=== PATIENT | female | born 1990 | race Caucasian/White ===

== ENCOUNTER 2016-12-04 21:19 | Emergency (ER) | payer SELFPAY ==
[2016-12-04 21:24] VITALS: BP 127/70
--- NOTE | 2016-12-04 22:15 | ER Document Report ---
ED Oral Problem - General Mode of Arrival: Ambulatory Information source: Patient TRAVEL OUTSIDE OF THE [place] IN LAST 30 DAYS: No - General Chief Complaint: Toothache Stated Complaint: TOOTH PAIN Notes: Patient is a 26-year-old female who frequently is seen in this emergency department with painful complains including several visits for dental pain who presents to the emergency department today with complaints of dental pain. Patient states that this she has been having this dental pain for approximately 3 days. Patient states she has an appointment next month at the [facility] to have this tooth removed. Patient complains of a headache with associated nausea. (KAYLA ANDERSON) - Related Data Allergies/Adverse Reactions: No Known Allergies Allergy (Verified 12/15/14 20:26) Past Medical History - General Information source: Patient - Social History Smoking Status: Current Every Day Smoker Cigarette use (# per day): Yes Frequency of alcohol use: None Drug Abuse: None Lives with: Family Family History: Arthritis, Hypertension Patient has suicidal ideation: No Patient has homicidal ideation: No Neurological Medical History: Reports: Hx Migraine Psychiatric Medical History: Reports: Hx Anxiety, Hx Depression - anxiety, panic attacks Surgical Hx: Negative - Immunizations Immunizations up to date: Yes Hx Diphtheria, Pertussis, Tetanus Vaccination: Yes Review of Systems - Review of Systems Constitutional: No symptoms reported EENT: See HPI, Mouth pain Cardiovascular: No symptoms reported Respiratory: No symptoms reported Gastrointestinal: See HPI, Nausea Genitourinary: No symptoms reported Female Genitourinary: No symptoms reported Musculoskeletal: No symptoms reported Skin: No symptoms reported Hematologic/Lymphatic: No symptoms reported Neurological/Psychological: See HPI, Headaches -: Yes All other systems reviewed and negative Physical Exam - Vital signs Vitals: Temp Pulse Resp BP Pulse Ox 98.5 F 82 18 127/70 H 98 12/04/16 21:20 12/04/16 21:20 12/04/16 21:20 12/04/16 21:20 12/04/16 21:20 - Notes Notes: Physical Exam: General: Alert, appears well. HEENT: Normocephalic. Atraumatic. PERRLA. Extraocular movements intact. Oropharynx clear. Left lower tooth with dental decay, no secondary infection, no jaw or facial swelling, no abscess formation. No trismus or stridor. Patient handling secretions appropriately. Airway is patent. Neck: Supple. Respiratory: No respiratory distress. Abdominal: Normal Inspection. No distension. Extremities: Moves all four extremities. Neurological: Cranial nerves II-XII grossly intact bilaterally. Normal cognition. AAOx4. Normal speech. Psychological: Normal affect. Normal Mood. Skin: Warm. Dry. Normal color. (KAYLA ANDERSON) Course - Re-evaluation Re-evalutation: 12/05/16 00:48 Patient presents emerged from with a chief complaint of toothache said it started on Wednesday and she called her dental physician they can get her in in a month and a half. She says that they told her to come to the emergency department until she can get in. She said this is the dental clinic that her goes to. This particular tooth is rotten down to the root and we have seen her numerous times for this particular tooth in the past. She does not have a primary care physician. The tooth in question is the left lower tooth it is not secondarily infected there is no jaw facial swelling she reports she cannot eat or drink anything there is nothing on my examination and states she cannot drink or eat with this there is no associated swelling or abscess. Trachea is midline neck is supple no trismus stridor or drooling. She also says she feels sick to her stomach from "the infection it is in her tooth. Again I see no signs of infection she is awake and alert requesting narcotics on examination I do not feel that is appropriate I am going to give her penicillin and Marisol gave her a list of dental physician so she can call and get a more prompt follow-up in addition to follow-up with the clinic for outgoing management of medical related problems and discussed reasons for ED return sooner (MIKAEL NICHOLE) - Vital Signs Vital signs: Temp Pulse Resp BP Pulse Ox 98.5 F 82 18 127/70 H 98 12/04/16 21:20 12/04/16 21:20 12/04/16 21:20 12/04/16 21:20 12/04/16 21:20 Discharge - Discharge Clinical Impression: Odontalgia Condition: Stable Disposition: HOME, SELF-CARE Instructions: [facility], Penicillin V K ([facility]), Toothache ([facility]) Additional Instructions: Toothache Your pain is due to dental decay. The tooth must be repaired in order for you to feel better. You will, therefore, be referred to a dentist. Severe swelling or drainage around a tooth usually means a deep dental abscess. This also requires evaluation and treatment by the dentist, but antibiotics may be prescribed while awaiting dental treatment. You should be rechecked immediately if you develop major swelling of the face, increasing pain, a lump in the jaw or gums, headache, or fever. Prescriptions: Ondansetron [Zofran Odt 4 mg Tablet] 1 - 2 tab PO Q4H PRN #15 tab.rapdis PRN Reason: For Nausea/Vomiting Penicillin V Potassium [Penicillin Vk 250 mg Tablet] 250 mg PO Q6 #40 tablet Referrals: [facility] [Provider Group] (In 3-5 days was also given you a list of dental physicians in the area that you must see to take care of your dental problem.) Marshall Attestation: 12/05/16 00:47 I personally performed the services described in the documentation reviewed the documentation recorded by my scribe in my presence and it accurately and completely records my words and actions (MIKAEL NICHOLE) Marshall Documentation - Scribe Written by Marshall:: Marshall Jacobo, 12/05/2016 0318 acting as scribe for :: Neville
[2016-12-05] MEDS ORDERED: PENICILLIN V POTASSIUM 250 MG TABLET PO ONE (00:49)
[2016-12-05] MEDS ORDERED: ONDANSETRON ODT 4 MG TAB (6 TAB/DSPK) PO PRN (00:50)
== END 2016-12-05 01:30 | disposition home or self-care (01) ==
LOC: ER 21:19
DX: K08.89 Other specified disorders of teeth and supporting structures (principal); F17.210 Nicotine dependence, cigarettes, uncomplicated
CPT/HCPCS: 99282

== ENCOUNTER 2017-03-24 19:16 | Emergency (ER) | payer SELFPAY ==
[2017-03-24] MEDS ORDERED: PENICILLIN V POTASSIUM 500 MG TABLET PO ONE (20:17)
[2017-03-24] MEDS ORDERED: HYDROCODONE/ACETAMINOPHEN 5-325 MG 6 TAB/DSPK PO PRN (20:17)
--- NOTE | 2017-03-24 20:20 | ER Document Report ---
HPI - HPI Patient complains to provider of: dental infection Onset: Other - 3 days Onset/Duration: Persistent Quality of pain: Sharp Pain Level: 4 Context: She complains of dental pain with infection for the past 3 days. Patient states that 2 days ago she had facial swelling and then a small blister on her gingiva opened and she has had purulent drainage since then. Patient states facial swelling has improved. Patient denies any fever. Associated Symptoms: Other - dental pain Exacerbated by: Denies Relieved by: Denies Similar symptoms previously: Yes Recently seen / treated by doctor: No - ROS ROS below otherwise negative: Yes Systems Reviewed and Negative: Yes All other systems reviewed and negative - GASTROINTESTINAL Gastrointestinal: DENIES: Nausea - REPRODUCTIVE Reproductive: DENIES: : - DERM Skin Color: Normal Skin Problems: None Past Medical History - General Information source: Patient - Social History Smoking Status: Current Every Day Smoker Smoking Education Provided: Yes Frequency of alcohol use: None Drug Abuse: None Occupation: None Lives with: Family Family History: Arthritis, Hypertension Neurological Medical History: Reports: Hx Migraine Renal/ Medical History: Denies: Hx Peritoneal Dialysis Psychiatric Medical History: Reports: Hx Anxiety, Hx Depression - anxiety, panic attacks Surgical Hx: Negative - Immunizations Immunizations up to date: Yes Hx Diphtheria, Pertussis, Tetanus Vaccination: Yes Vertical Provider Document - CONSTITUTIONAL Agree With Documented VS: Yes Exam Limitations: No Limitations General Appearance: WD/WN, No Apparent Distress - INFECTION CONTROL TRAVEL OUTSIDE OF THE [place] IN LAST 30 DAYS: No - HEENT HEENT: Atraumatic, Normocephalic Mouth Diagram: 1 - Dental caries, fracture, tenderness. Patient with gingiva with draining ulceration, no drainable abscess at this time - NECK Neck: Normal Inspection, Supple. negative: Lymphadenopathy-Left, Lymphadenopathy-Right - RESPIRATORY Respiratory: Breath Sounds Normal, No Respiratory Distress O2 Sat by Pulse Oximetry: 100 - CARDIOVASCULAR Cardiovascular: Regular Rate, Regular Rhythm, No Murmur - BACK Back: Normal Inspection - MUSCULOSKELETAL/EXTREMETIES Musculoskeletal/Extremeties: JAKE ROTH - NEURO Level of Consciousness: Awake, Alert, Appropriate Motor/Sensory: No Motor Deficit - DERM Integumentary: Warm, Dry, No Rash Course - Vital Signs Vital signs: Temp Pulse Resp BP Pulse Ox 98.6 F 81 18 134/89 H 100 03/24/17 19:17 03/24/17 19:17 03/24/17 19:17 03/24/17 19:17 03/24/17 19:17 Discharge - Discharge Clinical Impression: Infected dental caries Condition: Stable Disposition: HOME, SELF-CARE Instructions: Dental Infection or Abscess ([facility]), Oral Narcotic Medication ([facility]) , Penicillin V K ([facility]) Additional Instructions: Return immediately for any new or worsening symptoms Followup with your dental care provider, call tomorrow to make a followup appointment Prescriptions: Naproxen [Naprosyn 250 Nmg Tablet] 1 tab PO BID #14 tablet Penicillin V Potassium [Penicillin Vk 500 mg Tablet] 500 mg PO BID #20 tablet Forms: Smoking Cessation Education Referrals: [facility] [Provider Group] - Follow up tomorrow
[2017-03-24 20:33] VITALS: BP 132/86
== END 2017-03-24 20:34 | disposition home or self-care (01) ==
LOC: ER 19:16
DX: K04.7 Periapical abscess without sinus (principal); K02.9 Dental caries, unspecified; K08.89 Other specified disorders of teeth and supporting structures; F17.200 Nicotine dependence, unspecified, uncomplicated; Z71.6 Tobacco abuse counseling
CPT/HCPCS: 99282

== ENCOUNTER 2018-05-10 06:53 | Emergency (ER) | payer SELFPAY ==
[2018-05-10] MEDS ORDERED: KETOROLAC TROMETHAMINE INJ/PF 30 MG/1 ML SDV IV ONE (07:19)
[2018-05-10] MEDS ORDERED: ONDANSETRON HCL INJ/PF 4 MG/2 ML SDV IV ONE (07:19)
[2018-05-10] MEDS ORDERED: NORMAL SALINE 1000 ML 1,000 ML IV ONE (07:19)
[2018-05-10] MEDS ORDERED: MORPHINE SULFATE 10 MG/ML INJ IV ONE (07:19)
--- NOTE | 2018-05-10 07:24 | ER Document Report ---
ED GI/ - General Chief Complaint: Abdominal Pain Stated Complaint: LEFT SIDE PAIN Time Seen by Provider: 05/10/18 06:55 Mode of Arrival: Ambulatory Information source: Patient Notes: Patient is an otherwise healthy 27-year-old female who presents to the emergency department with sudden onset left upper quadrant pain. She states this started at 2 AM, she thought it was perhaps a gas or that she needed to have a bowel movement. She reports that the pain has increased since then she now has nausea and vomiting. Patient reports history of kidney stones, states this does not feel similar and she denies any dysuria or urinary symptoms. Patient denies any fever. Reports before she went to bed last night she was feeling fine. Patient has no significant past medical history and no surgical history. TRAVEL OUTSIDE OF THE [place] IN LAST 30 DAYS: No - Related Data Allergies/Adverse Reactions: No Known Allergies Allergy (Verified 05/10/18 07:27) Past Medical History - General Information source: Patient - Social History Smoking Status: Never Smoker Frequency of alcohol use: None Drug Abuse: None Family History: Arthritis, Hypertension Neurological Medical History: Reports: Hx Migraine Renal/ Medical History: Denies: Hx Peritoneal Dialysis Psychiatric Medical History: Reports: Hx Anxiety, Hx Depression - anxiety, panic attacks Surgical Hx: Negative - Immunizations Immunizations up to date: Yes Hx Diphtheria, Pertussis, Tetanus Vaccination: Yes Review of Systems - Review of Systems Constitutional: No symptoms reported EENT: No symptoms reported Cardiovascular: No symptoms reported Respiratory: No symptoms reported Gastrointestinal: Abdominal pain - LUQ, Nausea, Vomiting Genitourinary: Flank pain Female Genitourinary: No symptoms reported Musculoskeletal: No symptoms reported Skin: No symptoms reported Hematologic/Lymphatic: No symptoms reported Neurological/Psychological: No symptoms reported Physical Exam - Vital signs Vitals: Pulse Resp BP Pulse Ox 69 18 120/77 99 05/10/18 06:53 05/10/18 06:53 05/10/18 06:53 05/10/18 06:53 - Notes Notes: PHYSICAL EXAMINATION: GENERAL: Well-appearing, well-nourished and in moderate distress. HEAD: Atraumatic, normocephalic. EYES: Pupils equal round and reactive to light, extraocular movements intact, conjunctiva are normal. ENT: Nares patent, oropharynx clear without exudates. Moist mucous membranes. NECK: Normal range of motion, supple without lymphadenopathy LUNGS: Breath sounds clear to auscultation bilaterally and equal. No wheezes rales or rhonchi. HEART: Regular rate and rhythm without murmurs ABDOMEN: Soft, nondistended abdomen. Tenderness to palpation to left upper quadrant. No guarding, no rebound. No masses appreciated. Female : Left-sided CVA tenderness present. Musculoskeletal: Normal range of motion, no pitting or edema. No cyanosis. NEUROLOGICAL: Cranial nerves grossly intact. Normal speech. Normal sensory, motor exams PSYCH: Normal mood, normal affect. SKIN: Warm, Dry, normal turgor, no rashes or lesions noted. Course - Re-evaluation Re-evalutation: Patient's physical examination is most consistent with left renal stone. CBC and CMP are unremarkable. Urinalysis shows moderate hematuria with calcium oxalate present otherwise appears uninfected. HCG is negative. We will send patient for CT renal stone protocol. Patient reports improvement of her pain after administration of multiple rounds of IV medications. IV fluids are infusing. CT reveals 4 mm nonobstructive stone at the left UPJ with mild hydronephrosis but no hydroureter. Patient reports she is feeling much improved. Patient stable for discharge home at this time. Patient given adequate pain control as well as nausea medications. Strict ED return precautions were given to patient to include development of fever. - Vital Signs Vital signs: Temp Pulse Resp BP Pulse Ox 97.8 F 69 18 111/61 95 05/10/18 06:58 05/10/18 06:53 05/10/18 06:53 05/10/18 09:00 05/10/18 11:00 - Laboratory Result Diagrams: 05/10/18 07:16 05/10/18 07:16 Laboratory results interpreted by me: 05/10/18 05/10/18 07:16 08:05 Chloride 110 H Carbon Dioxide 21 L Urine Protein 100 H Urine Blood MODERATE H Urine Bilirubin SMALL H Urine Urobilinogen 4.0 H Discharge - Discharge Clinical Impression: Kidney stone on left side Condition: Stable Disposition: HOME, SELF-CARE Additional Instructions: Kidney Stone You are passing or have passed a kidney stone. These stones are usually due to increased calcium or uric acid concentrations in your urine. Stones within the kidney itself are not painful. The pain occurs as the stone leaves the kidney to pass down the long tube, called the ureter, leading to the bladder. If the stone is small, it will usually pass by itself. Most patients can pass the stone at home. You will usually receive medications for pain, nausea or vomiting, and sometimes a medication to assist in passing the kidney stone. However, if the pain is very severe or if vomiting prevents you from taking oral pain medications, you may need to return for further treatment. Drink three or four quarts of fluids per day. You will be given pain medication (if needed) and urine strainers. Strain all your urine to see if the stone passes. If your doctor has asked you to bring the stone in for analysis, return with the stone once it has passed. Return if pain or vomiting become severe, if you develop a high fever, if you are unable to pass your urine, or if other unusual symptoms occur. Your symptoms should improve over the course of the next one week. If you continue to have pain for greater than one week or your pain is not controlled with the pain medications that you have been sent home with you need to return to the emergency department. Please also return if you develop fever, persistent vomiting, or any other symptoms that are concerning to you. You should take ibuprofen 600 mg every 6 hours and use the Percocet as prescribed only for pain not controlled by ibuprofen. You are also been sent home with a m edication called Flomax to help pass the stone. You've been given Zofran to assist with nausea. Prescriptions: Ibuprofen [Motrin 600 mg Tablet] 600 mg PO Q6H PRN #40 tablet PRN Reason: For Pain Ondansetron [Zofran Odt 4 mg Tablet] 1 - 2 tab PO Q4H PRN #15 tab.rapdis PRN Reason: For Nausea/Vomiting Oxycodone HCl/Acetaminophen [Percocet 5-325 mg Tablet] 1 - 2 tab PO Q4H PRN #15 tablet PRN Reason: Tamsulosin HCl [Flomax 0.4 mg Cap.sr] 0.4 mg PO DAILY #7 cap.sr.24h Referrals: [facility] [Provider Group] - Follow up as needed
[2018-05-10 07:31] LABS: ABSOLUTE EOSINOPHILS # (AUTO) 0.1 10^3/uL (0.0-0.6); ABSOLUTE LYMPHOCYTES (AUTO) 1.9 10^3/uL (0.5-4.7); ABSOLUTE MONOCYTES (AUTO) 0.7 10^3/uL (0.1-1.4); ABSOLUTE NEUT (AUTO) 7.3 10^3/uL (1.7-8.2); BASOPHILS % (AUTO) 0.3 % (0-2); EOSINOPHILS % (AUTO) 1.3 % (0-6); HEMATOCRIT 39.6 % (36.0-47.0); HEMOGLOBIN 13.9 g/dL (12.0-15.5); LYMPHOCYTES % (AUTO) 18.9 % (13-45); MEAN CORPUSCULAR HEMOGLOBIN 29.9 pg (27.0-33.4); MEAN CORPUSCULAR HGB CONC 35.1 g/dL (32.0-36.0); MEAN CORPUSCULAR VOLUME 85 fl (80-97); MONOCYTES % (AUTO) 7.1 % (3-13); PLATELET COUNT 234 10^3/uL (150-450); RED BLOOD COUNT 4.66 10^6/uL (3.72-5.28); RED CELL DISTRIBUTION WIDTH 12.8 % (11.5-14.0); SEGMENTED NEUTROPHILS % (AUTO) 72.4 % (42-78); TOTAL CELLS COUNTED % (AUTO) 100 %
[2018-05-10 07:49] LABS: ALANINE AMINOTRANSFERASE 34 U/L (9-52); ALBUMIN 4.7 g/dL (3.5-5.0); ALKALINE PHOSPHATASE 62 U/L (38-126); ANION GAP 9 (5-19); ASPARTATE AMINO TRANSFERASE 20 U/L (14-36); BILIRUBIN,DIRECT 0.1 mg/dL (0.0-0.4); BILIRUBIN,TOTAL 0.6 mg/dL (0.2-1.3); BLOOD UREA NITROGEN 15 mg/dL (7-20); CALCIUM 10.1 mg/dL (8.4-10.2); CARBON DIOXIDE 21 mmol/L (22-30); CHLORIDE 110 mmol/L (98-107); GLUCOSE 106 mg/dL (75-110); LIPASE 66.9 U/L (23-300); POTASSIUM 4.1 mmol/L (3.6-5.0); TOTAL PROTEIN 7.3 g/dL (6.3-8.2)
[2018-05-10] MEDS ORDERED: HYDROMORPHONE HCL INJ/PF 2 MG/ML AMPULE IV ONE ×2 (08:16→10:25)
[2018-05-10 08:44] LABS: APPEARANCE,URINE CLOUDY; BILIRUBIN,URINE SMALL (NEGATIVE); CALCIUM OXALATE CRYSTALS,URINE TOO NUMEROUS TO CNT /HPF; COLOR,URINE DARK YELLOW; GLUCOSE, URINE NEGATIVE (NEGATIVE); KETONES,URINE NEGATIVE (NEGATIVE); LEUKOCYTE ESTERASE,URINE NEGATIVE (NEGATIVE); NITRITE,URINE NEGATIVE (NEGATIVE); PROTEIN,URINE 100 mg/dL (NEGATIVE); URINE SPECIFIC GRAVITY 1.032
--- NOTE | 2018-05-10 09:55 | RADIOLOGY REPORT (SQ) ---
EXAM DESCRIPTION: CT LTD RENAL STONE PROTOCOL ON COMPLETED DATE/TIME: 05/10/2018 9:40 am REASON FOR STUDY: LEFT FLANK PAIN COMPARISON: None. TECHNIQUE: CT scan of the abdomen and pelvis performed without intravenous or oral contrast. Images reviewed with lung, soft tissue, and bone windows. Reconstructed coronal and sagittal MPR images revi ewed. All images stored on PACS. All CT scanners at this facility use dose modulation, iterative reconstruction, and/or weight based d osing when appropriate to reduce radiation dose to as low as reasonably achievable (ALARA). [facility]: Dose Right [facility]: CareDose [facility]: Dose Right [facility]: Teradose 4D [facility]: [employer] RADIATION DOSE: CT Rad equipment meets quality standard of care and radiation dose reduction techniq ues were employed. CTDIvol: 5.1 mGy. DLP: 262 mGy-cm.mGy. LIMITATIONS: None. FINDINGS: LOWER CHEST: No significant findings. No nodules or infiltrates. NON-CONTRASTED LIVER, SPLEEN, ADRENALS: Evaluation limited by lack of IV contrast. No identified sign ificant masses. PANCREAS: No masses. No peripancreatic inflammatory changes. GALLBLADDER: No identified stones by CT criteria. No inflammatory changes to suggest cholecystitis. RIGHT KIDNEY AND URETER: No suspicious masses. Assessment limited by lack of IV contrast. 6 mm narinder l calculus. No hydronephrosis or hydroureter. LEFT KIDNEY AND URETER: No suspicious masses. Assessment limited by lack of IV contrast. Several re nal calculi measuring up to 7 mm lower pole. 4 mm stone UPJ. Mild hydronephrosis. AORTA AND RETROPERITONEUM: No aneurysm. No retroperitoneal masses or adenopathy. BOWEL AND PERITONEAL CAVITY: No obvious masses or inflammatory changes. No free fluid. APPENDIX: Normal. PELVIS, BLADDER, AND ABDOMINAL WALL:No abnormal masses. No free fluid. Bladder normal. BONES: No significant findings. OTHER: No other significant finding. IMPRESSION: 4 mm stone left UPJ. Mild hydronephrosis. COMMENT: Quality ID # [id number]: Final reports with documentation of one or more dose reduction techniques (e.g., Automated exposure control, adjustment of the mA and/or kV according to patient size, use of iterative reconstruction technique) TECHNICAL DOCUMENTATION: JOB ID: [id number] [employer]- All Rights Reserved Reading location - IP/workstation name: [facility]
[2018-05-10 11:32] VITALS: BP 111/61
== END 2018-05-10 11:43 | disposition home or self-care (01) ==
LOC: ER 06:53
DX: N13.2 Hydronephrosis with renal and ureteral calculous obstruction (principal); R31.9 Hematuria, unspecified; R10.12 Left upper quadrant pain; R11.2 Nausea with vomiting, unspecified
CPT/HCPCS: 96376; 99284; 96361; 96374; 96375; 36415; 83690; 85025; 81025; 80053; 81001; 76380; J1885; J2270; J1170; J2405; J7030

== ENCOUNTER 2018-05-11 21:48 | Emergency (ER) | payer SELFPAY ==
[2018-05-11] MEDS ORDERED: ONDANSETRON 4 MG TAB.RAPDIS PO ONE (22:59)
[2018-05-11] MEDS ORDERED: MORPHINE SULFATE 10 MG/ML INJ IV ONE (23:00)
--- NOTE | 2018-05-11 23:02 | ER Document Report ---
ED Medical Screen (RME) - General Chief Complaint: Flank Pain Stated Complaint: FLANK PAIN Time Seen by Provider: 05/11/18 22:59 Notes: Patient is a 27-year-old female presents to the emergency department complaining of continued left-sided flank pain and vomiting. Patient states she was at this facility yesterday diagnosed with kidney stones and given prescription for nausea medication and pain medication. Patient states she was unable to fill the pain medication until this afternoon. Patient states she did start vomiting this afternoon and now cannot keep the pain medications down because of the continued vomiting. This is why patient represents to the emergency room. Past medical history: Kidney stones Medications: Currently none Allergies: None GENERAL: Alert, interacts well. Actively vomiting, diaphoretic ABDOMEN: Soft, non-tender. Non-distended. Bowel sounds present in all 4 quadrants. Generalized left flank pain noted no left lower quadrant pain or pelvic pain noted. I have greeted and performed a rapid initial assessment of this patient. A comprehensive ED assessment and evaluation of the patient, analysis of test results and completion of the medical decision making process will be conducted by additional ED providers. TRAVEL OUTSIDE OF THE [place] IN LAST 30 DAYS: No - Related Data Allergies/Adverse Reactions: No Known Allergies Allergy (Verified 05/10/18 07:27) Past Medical History Neurological Medical History: Reports: Hx Migraine Renal/ Medical History: Denies: Hx Peritoneal Dialysis Psychiatric Medical History: Reports: Hx Anxiety, Hx Depression - anxiety, panic attacks - Immunizations Immunizations up to date: Yes Hx Diphtheria, Pertussis, Tetanus Vaccination: Yes Physical Exam - Vital signs Vitals: Temp Pulse Resp BP Pulse Ox 98.7 F 74 18 117/58 L 100 05/11/18 22:21 05/11/18 22:21 05/11/18 22:21 05/11/18 22:21 05/11/18 22:21 Course - Vital Signs Vital signs: Temp Pulse Resp BP Pulse Ox 98.7 F 74 18 117/58 L 100 05/11/18 22:21 05/11/18 22:21 05/11/18 22:21 05/11/18 22:21 05/11/18 22:21
[2018-05-11] MEDS ORDERED: NORMAL SALINE 1000 ML 1,000 ML IV ONE (23:03)
[2018-05-12 00:15] LABS: ABSOLUTE EOSINOPHILS # (AUTO) 0.1 10^3/uL (0.0-0.6); ABSOLUTE LYMPHOCYTES (AUTO) 1.2 10^3/uL (0.5-4.7); ABSOLUTE MONOCYTES (AUTO) 0.5 10^3/uL (0.1-1.4); ABSOLUTE NEUT (AUTO) 6.9 10^3/uL (1.7-8.2); BASOPHILS % (AUTO) 0.3 % (0-2); EOSINOPHILS % (AUTO) 0.7 % (0-6); HEMATOCRIT 39.8 % (36.0-47.0); HEMOGLOBIN 13.6 g/dL (12.0-15.5); LYMPHOCYTES % (AUTO) 13.6 % (13-45); MEAN CORPUSCULAR HEMOGLOBIN 29.1 pg (27.0-33.4); MEAN CORPUSCULAR HGB CONC 34.2 g/dL (32.0-36.0); MEAN CORPUSCULAR VOLUME 85 fl (80-97); PLATELET COUNT 216 10^3/uL (150-450); RED BLOOD COUNT 4.68 10^6/uL (3.72-5.28); SEGMENTED NEUTROPHILS % (AUTO) 79.4 % (42-78); TOTAL CELLS COUNTED % (AUTO) 100 %; WHITE BLOOD COUNT 8.7 10^3/uL (4.0-10.5)
[2018-05-12 00:22] LABS: ALANINE AMINOTRANSFERASE 28 U/L (9-52); ALKALINE PHOSPHATASE 68 U/L (38-126); ANION GAP 13 (5-19); ASPARTATE AMINO TRANSFERASE 26 U/L (14-36); BILIRUBIN,DIRECT 0.3 mg/dL (0.0-0.4); BILIRUBIN,TOTAL 0.8 mg/dL (0.2-1.3); BLOOD UREA NITROGEN 18 mg/dL (7-20); CARBON DIOXIDE 19 mmol/L (22-30); CHLORIDE 105 mmol/L (98-107); GLUCOSE 74 mg/dL (75-110); SODIUM 137.2 mmol/L (137-145); TOTAL PROTEIN 7.6 g/dL (6.3-8.2)
[2018-05-12] MEDS ORDERED: PROMETHAZINE HCL INJ 25 MG/1 ML VIAL IV ONE (00:22)
[2018-05-12] MEDS ORDERED: HYDROMORPHONE HCL INJ/PF 2 MG/ML AMPULE IV ONE (00:22)
[2018-05-12] MEDS ORDERED: METOCLOPRAMIDE HCL INJ/PF 10 MG/2 ML SDV IV ONE (01:14)
[2018-05-12] MEDS ORDERED: NORMAL SALINE 1000 ML 1,000 ML IV ONE (01:17)
[2018-05-12 01:25] LABS: APPEARANCE,URINE SLIGHTLY-CLOUDY; BILIRUBIN,URINE NEGATIVE (NEGATIVE); COLOR,URINE YELLOW; GLUCOSE, URINE NEGATIVE (NEGATIVE); KETONES,URINE 80 mg/dL (NEGATIVE); LEUKOCYTE ESTERASE,URINE SMALL (NEGATIVE); NITRITE,URINE NEGATIVE (NEGATIVE); PROTEIN,URINE 30 mg/dL (NEGATIVE)
--- NOTE | 2018-05-12 02:12 | ER Document Report ---
ED General - General Chief Complaint: Flank Pain Stated Complaint: FLANK PAIN Time Seen by Provider: 05/11/18 22:59 Notes: Patient is a 27-year-old female presents to the emergency department complaining of continued left-sided flank pain and vomiting. Patient states she was at this facility yesterday diagnosed with kidney stones and given prescription for nausea medication and pain medication. Patient states she was unable to fill the pain medication until this afternoon. Patient states she did start vomiting this afternoon and now cannot keep the pain medications down because of the continued vomiting. This is why patient represents to the emergency room. Past medical history: Kidney stones Medications: Currently none Allergies: None TRAVEL OUTSIDE OF THE [place] IN LAST 30 DAYS: No - Related Data Allergies/Adverse Reactions: No Known Allergies Allergy (Verified 05/10/18 07:27) Past Medical History - General Information source: Patient - Social History Smoking Status: Unknown if Ever Smoked Family History: Arthritis, Hypertension Patient has suicidal ideation: No Patient has homicidal ideation: No Neurological Medical History: Reports: Hx Migraine Renal/ Medical History: Reports: Hx Kidney Stones. Denies: Hx Peritoneal Dialysis Psychiatric Medical History: Reports: Hx Anxiety, Hx Depression - anxiety, panic attacks - Immunizations Immunizations up to date: Yes Hx Diphtheria, Pertussis, Tetanus Vaccination: Yes Review of Systems - Review of Systems Constitutional: No symptoms reported. denies: Fever EENT: No symptoms reported Cardiovascular: No symptoms reported Respiratory: No symptoms reported Gastrointestinal: See HPI Genitourinary: See HPI Female Genitourinary: No symptoms reported Musculoskeletal: No symptoms reported Skin: No symptoms reported Hematologic/Lymphatic: No symptoms reported Neurological/Psychological: No symptoms reported Physical Exam - Vital signs Vitals: Temp Pulse Resp BP Pulse Ox 98.7 F 74 18 117/58 L 100 05/11/18 22:21 05/11/18 22:21 05/11/18 22:21 05/11/18 22:21 05/11/18 22:21 - Notes Notes: GENERAL: Alert, interacts well. No acute distress. HEAD: Normocephalic, atraumatic. EYES: Pupils equal, round, and reactive to light. Extraocular movements intact. ENT: Oral mucosa moist, tongue midline. NECK: Full range of motion. Supple. Trachea midline. LUNGS: Clear to auscultation bilaterally, no wheezes, rales, or rhonchi. No respiratory distress. HEART: Regular rate and rhythm. No murmur ABDOMEN: Soft, non-tender. Non-distended. Bowel sounds present in all 4 quadrants. Mild left flank tenderness upon palpation. No CVA tenderness on the right. EXTREMITIES: Moves all 4 extremities spontaneously. No edema, normal radial and dorsalis pedis pulses bilaterally. No cyanosis. BACK: no cervical, thoracic, lumbar midline tenderness. No saddle anesthesia, normal distal neurovascular exam. NEUROLOGICAL: Alert and oriented x3. Normal speech. cranial nerves II through XII grossly intact PSYCH: Normal affect, normal mood. SKIN: Warm, dry, normal turgor. No rashes or lesions noted. Course - Re-evaluation Re-evalutation: 05/12/18 02:08 Initially nurse brings my attention that after Zofran administration the patient continues to vomit. Phenergan was then ordered. Patient states she continues to vomit up to 3 times after Phenergan administration but states after Dilaudid administration her pain is a lot better. Patient was then given Reglan and has not vomited since. Patient was given a total of 2 L of normal saline solution and was able to p.o. fluids after Reglan administration. Discussed continued pain management and antinausea medications that were prescribed yesterday. Discussed close return precautions, patient is non-tachycardic, afebrile, stable for discharge. - Vital Signs Vital signs: Temp Pulse Resp BP Pulse Ox 98.5 F 90 16 110/68 100 05/12/18 02:42 05/12/18 02:42 05/12/18 02:42 05/12/18 02:42 05/12/18 02:42 - Laboratory Result Diagrams: 05/11/18 23:56 05/11/18 23:56 Laboratory results interpreted by me: 05/11/18 05/11/18 05/12/18 23:56 23:56 01:07 Seg Neutrophils % 79.4 H Carbon Dioxide 19 L Glucose 74 L Urine Protein 30 H Urine Ketones 80 H Urine Blood SMALL H Urine Urobilinogen 2.0 H Ur Leukocyte Esterase SMALL H Discharge - Discharge Clinical Impression: Kidney stone on left side, Kidney stone Condition: Stable Disposition: HOME, SELF-CARE Instructions: Kidney Stone ([facility]) Additional Instructions: As we discussed you have been seen and treated in the emergency department for a recurrent kidney stone. Please make sure you take at home medications as prescribed. Please make sure you return to the emergency room for any other concerning symptoms. Prescriptions: Metoclopramide HCl [Reglan 10 mg Tablet] 10 mg PO Q6 #12 tablet
[2018-05-12 02:47] VITALS: BP 110/68
== END 2018-05-12 02:45 | disposition home or self-care (01) ==
LOC: ER 21:48
DX: N20.0 Calculus of kidney (principal); R10.9 Unspecified abdominal pain; R11.10 Vomiting, unspecified
CPT/HCPCS: 99284; 96361; 96374; 96375; 36415; 85025; 80053; 81001; S0119; J2765; J2270; J1170; J2550; J7030 ×2

== ENCOUNTER 2019-11-06 16:23 | Emergency (ER) | payer SELFPAY ==
[2019-11-06] MEDS ORDERED: KETOROLAC TROMETHAMINE INJ/PF 30 MG/1 ML SDV IV ONE (17:02)
[2019-11-06] MEDS ORDERED: ONDANSETRON HCL INJ/PF 4 MG/2 ML SDV IV ONE ×2 (17:02→22:13)
--- NOTE | 2019-11-06 17:03 | ER Document Report ---
ED Medical Screen (RME) - General Chief Complaint: Flank Pain Stated Complaint: FLANK PAIN Time Seen by Provider: 11/06/19 17:00 Notes: HPI: 29-year-old female with prior history of kidney stones presenting with right flank pain with vomiting that woke her this morning. States pain seems to be high up in the right side of the abdomen. Has had vomiting without resolution of the vomiting. Pain does not go away with position or movement. D oes not specifically recall if this is like her last kidney stone. Patient is a poor historian likely secondary to her discomfort at this time and actively vomiting in triage PHYSICAL EXAMINATION: Moderate distress, patient is slightly pale and actively throwing up in triage. Mild tenderness to the right flank region on palpation but limited exam based on positioning and current medical condition. I have greeted and performed a rapid initial assessment of this patient. A comprehensive ED assessment and evaluation of the patient, analysis of test results and completion of medical decision making process will be conducted by an additional ED providers. TRAVEL OUTSIDE OF THE [place] IN LAST 30 DAYS: No - Related Data Allergies/Adverse Reactions: No Known Allergies Allergy (Verified 05/10/18 07:27) Past Medical History Neurological Medical History: Reports: Hx Migraine Renal/ Medical History: Reports: Hx Kidney Stones. Denies: Hx Peritoneal Dialysis Psychiatric Medical History: Reports: Hx Anxiety, Hx Depression - anxiety, panic attacks - Immunizations Immunizations up to date: Yes Hx Diphtheria, Pertussis, Tetanus Vaccination: Yes Physical Exam - Vital signs Vitals: Temp Pulse Resp BP 98.3 F 93 20 107/72 11/06/19 16:29 11/06/19 16:29 11/06/19 16:29 11/06/19 16:29 Course - Vital Signs Vital signs: Temp Pulse Resp BP Pulse Ox 98.3 F 93 20 107/72 11/06/19 16:29 11/06/19 16:29 11/06/19 16:29 11/06/19 16:29
[2019-11-06 17:35] LABS: ABSOLUTE LYMPHOCYTES (AUTO) 0.9 10^3/uL (0.5-4.7); ABSOLUTE MONOCYTES (AUTO) 0.4 10^3/uL (0.1-1.4); ABSOLUTE NEUT (AUTO) 9.3 10^3/uL (1.7-8.2); BASOPHILS % (AUTO) 0.2 % (0-2); EOSINOPHILS % (AUTO) 0.1 % (0-6); HEMATOCRIT 41.4 % (36.0-47.0); LYMPHOCYTES % (AUTO) 8.2 % (13-45); MEAN CORPUSCULAR HEMOGLOBIN 29.1 pg (27.0-33.4); MEAN CORPUSCULAR HGB CONC 33.9 g/dL (32.0-36.0); MEAN CORPUSCULAR VOLUME 86 fl (80-97); MONOCYTES % (AUTO) 3.4 % (3-13); PLATELET COUNT 187 10^3/uL (150-450); RED BLOOD COUNT 4.82 10^6/uL (3.72-5.28); RED CELL DISTRIBUTION WIDTH 13.8 % (11.5-14.0); SEGMENTED NEUTROPHILS % (AUTO) 88.1 % (42-78); TOTAL CELLS COUNTED % (AUTO) 100 %; WHITE BLOOD COUNT 10.6 10^3/uL (4.0-10.5)
[2019-11-06 17:46] LABS: APPEARANCE,URINE CLOUDY; BILIRUBIN,URINE NEGATIVE (NEGATIVE); COLOR,URINE RED; GLUCOSE, URINE NEGATIVE (NEGATIVE); KETONES,URINE 20 mg/dL (NEGATIVE); LEUKOCYTE ESTERASE,URINE MODERATE (NEGATIVE); NITRITE,URINE POSITIVE (NEGATIVE); PROTEIN,URINE 100 mg/dL (NEGATIVE); URINE SPECIFIC GRAVITY 1.016; UROBILINOGEN,URINE NEGATIVE mg/dL (<2.0)
[2019-11-06] MEDS ORDERED: CEFTRIAXONE 1 GM/D5W RTU 1 GM/50 ML RTUPB IV ONE (17:48)
[2019-11-06 17:56] LABS: ALBUMIN 4.6 g/dL (3.5-5.0); ALKALINE PHOSPHATASE 73 U/L (38-126); ANION GAP 9 (5-19); ASPARTATE AMINO TRANSFERASE 25 U/L (14-36); BLOOD UREA NITROGEN 15 mg/dL (7-20); CALCIUM 9.9 mg/dL (8.4-10.2); CARBON DIOXIDE 23 mmol/L (22-30); CHLORIDE 105 mmol/L (98-107); GLUCOSE 96 mg/dL (75-110); POTASSIUM 3.7 mmol/L (3.6-5.0); TOTAL PROTEIN 8.1 g/dL (6.3-8.2)
[2019-11-06] MEDS ORDERED: RINGERS SOLUTION,LACTATED 1,000 ML IV ONE (18:09)
[2019-11-06] MEDS ORDERED: MORPHINE SULFATE 10 MG/ML INJ IV ONE ×2 (18:09→22:13)
[2019-11-06] MEDS ORDERED: METOCLOPRAMIDE HCL INJ/PF 10 MG/2 ML SDV IV ONE (18:11)
--- NOTE | 2019-11-06 18:11 | RADIOLOGY REPORT (SQ) ---
EXAM DESCRIPTION: CT ABD/PELVIS NO ORAL OR IV IMAGES COMPLETED DATE/TIME: 11/06/2019 5:53 pm REASON FOR STUDY: right flank pain COMPARISON: None. TECHNIQUE: CT scan of the abdomen and pelvis performed without intravenous or oral contrast. Images reviewed with lung, soft tissue, and bone windows. Reconstructed coronal and sagittal MPR images revi ewed. All images stored on PACS. All CT scanners at this facility use dose modulation, iterative reconstruction, and/or weight based d osing when appropriate to reduce radiation dose to as low as reasonably achievable (ALARA). [facility]: Dose Right [facility]: CareDose [facility]: Dose Right [facility]: Teradose 4D [facility]: [employer] RADIATION DOSE: Total exam DLP: 238.71 mGy. LIMITATIONS: None. FINDINGS: LOWER CHEST: No significant findings. No nodules or infiltrates. NON-CONTRASTED LIVER, SPLEEN, ADRENALS: Small splenule, normal anatomic variant. Evaluation limited by lack of IV contrast. No identified significant masses. PANCREAS: No masses. No peripancreatic inflammatory changes. GALLBLADDER: No identified stones by CT criteria. No inflammatory changes to suggest cholecystitis. RIGHT KIDNEY AND URETER: A 5-6 mm calculus is suggested in the distal right ureter, axial image 68, series 3, close to the ureterovesical junction. The calculus results moderate right-sided hydronephr osis and hydroureter. Nonobstructing calculus in the midpole of the kidney measures 4-5 mm is. A few punctate nonobstructi ng calcifications are also noted. Assessment limited by lack of IV contrast. LEFT KIDNEY AND URETER: Several nonobstructing calcifications in the mid-lower pole of the kidney, s ome of the largest measure 6-7 mm. A few punctate nonobstructing calcifications also noted. Assessm ent limited by lack of IV contrast. AORTA AND RETROPERITONEUM: No aneurysm. No retroperitoneal masses or adenopathy. BOWEL AND PERITONEAL CAVITY: No obvious masses or inflammatory changes. No free fluid. APPENDIX: Normal. PELVIS, BLADDER, AND ABDOMINAL WALL: The urinary bladder is incompletely distended. No abnormal mas ses. No free fluid. BONES: No significant findings. OTHER: Central small disc protrusions at L4-5 and L5-S1. IMPRESSION: 1. A 5- 6 mm calculus is suggested in the distal right ureter which results in moderate dilatation of the renal collecting system and ureter. The calculus is located near the ureterovesic al junction. 2. Bilateral nonobstructing renal calculi. 3. Additional findings as above. COMMENT: Quality ID # [id number]: Final reports with documentation of one or more dose reduction techniques (e.g., Automated exposure control, adjustment of the mA and/or kV according to patient size, use of iterative reconstruction technique) TECHNICAL DOCUMENTATION: JOB ID: [id number] 2010 [employer]- All Rights Reserved Reading location - IP/workstation name: [email or web address]
--- NOTE | 2019-11-06 18:11 | ER Document Report ---
ED GI/ <JADIEL CARMICHAEL - Last Filed: 11/06/19 22:51> - General Mode of Arrival: Ambulatory Information source: Patient TRAVEL OUTSIDE OF THE [place] IN LAST 30 DAYS: No <MARGARITO ADAMS - Last Filed: 11/07/19 08:44> - General Chief Complaint: Flank Pain Stated Complaint: FLANK PAIN Time Seen by Provider: 11/06/19 17:00 Notes: 29-year-old female past medical history significant for kidney stones presents to the emergency room with sudden onset of right flank pain that started earlier today. She describes it as sharp and stabbing and radiating into her right lower quadrant. She denies any fevers. Complains of nausea vomiting. States she feels like she is not fully emptying her bladder but denies any dysuria did not take any medications for symptoms. (MARGARITO ADAMS) - Related Data Allergies/Adverse Reactions: No Known Allergies Allergy (Verified 05/10/18 07:27) Past Medical History - General Information source: Patient - Social History Smoking Status: Current Every Day Smoker Frequency of alcohol use: None Drug Abuse: None Family History: Arthritis, Hypertension Neurological Medical History: Reports: Hx Migraine Renal/ Medical History: Reports: Hx Kidney Stones. Denies: Hx Peritoneal D ialysis Psychiatric Medical History: Reports: Hx Anxiety, Hx Depression - anxiety, panic attacks - Immunizations Immunizations up to date: Yes Hx Diphtheria, Pertussis, Tetanus Vaccination: Yes <MARGARITO ADAMS - Last Filed: 11/07/19 08:44> Review of Systems - Review of Systems Constitutional: No symptoms reported Cardiovascular: No symptoms reported Respiratory: No symptoms reported Gastrointestinal: Nausea, Vomiting Genitourinary: Flank pain, Retention Musculoskeletal: No symptoms reported Skin: No symptoms reported Neurological/Psychological: No symptoms reported -: Yes All other systems reviewed and negative <MARGARITO ADAMS - Last Filed: 11/07/19 08:44> Physical Exam - General General appearance: Appears well, Alert In distress: Moderate - HEENT Head: Normocephalic, Atraumatic Eyes: Normal Pupils: PERRL - Respiratory Respiratory status: No respiratory distress Chest status: Nontender Breath sounds: Normal Chest palpation: Normal - Cardiovascular Rhythm: Regular Heart sounds: Normal auscultation Murmur: No - Abdominal Inspection: Normal Distension: No distension Bowel sounds: Normal Tenderness: Nontender Organomegaly: No organomegaly - Back Back: Normal, Tender, CVA tenderness. No: Vertebra tenderness - Neurological Neuro grossly intact: Yes Cognition: Normal Orientation: AAOx4 Myranda Coma Scale Eye Opening: Spontaneous Myranda Coma Scale Verbal: Oriented Mary Alice Coma Scale Motor: Obeys Commands Myranda Coma Scale Total: 15 Speech: Normal Motor strength normal: LUE, RUE, LLE, RLE Sensory: Normal - Skin Skin Temperature: Warm Skin Moisture: Dry Skin Color: Normal <MARGARITO ADAMS - Last Filed: 11/07/19 08:44> - Vital signs Vitals: Temp Pulse Resp BP 98.3 F 93 20 107/72 11/06/19 16:29 11/06/19 16:29 11/06/19 16:29 11/06/19 16:29 Course - Laboratory Result Diagrams: 11/06/19 17:10 11/06/19 17:10 <JADIEL CARMICHAEL - Last Filed: 11/06/19 22:51> - Laboratory Result Diagrams: 11/06/19 17:10 11/06/19 17:10 - Diagnostic Test Radiology reviewed: Reports reviewed - Consults Dr. Wisdom Time consulted: 19:04 Consulted provider: will see as inpatient Dr. Lynn Time consulted: 20:03 Consulted provider: will see as inpatient <MARGARITO ADAMS - Last Filed: 11/07/19 08:44> - Re-evaluation Re-evalutation: 11/06/19 22:51 Transport team is at bedside. I evaluated the patient and the patient is stable for transfer to [facility]. (JADIEL CARMICHAEL) 11/06/19 19:11 Patient is resting comfortably states her pain has improved. Discussed all test results with patient. Aware of need for cath urine. Patient is also aware that if her cath urine continues to do so infection she will need to be transferred to [facility]. Will reevaluate after cath urine. 11/06/19 20:05 discussed with patient need for transfer to [facility] for stent placement. She is aware that she will be seen by urologist Dr. Wisdom as well as the hospitalist Dr. Lynn. All questions were answered. Patient verbalized understanding and is agreeable to transfer. (WELLEN,SHERYLE D) - Vital Signs Vital signs: Temp Pulse Resp BP Pulse Ox 98.3 F 93 14 102/54 L 100 11/06/19 22:36 11/06/19 22:36 11/06/19 22:36 11/06/19 22:36 11/06/19 22:36 - Laboratory Laboratory results interpreted by me: 11/06/19 11/06/19 11/06/19 17:10 17:10 17:10 WBC 10.6 H Lymph % (Auto) 8.2 L Absolute Neuts (auto) 9.3 H Seg Neutrophils % 88.1 H Sodium 136.8 L Urine Protein 100 H Urine Ketones 20 H Urine Blood LARGE H Urine Nitrite POSITIVE H Urine Urobilinogen Ur Leukocyte Esterase MODERATE H 11/06/19 19:15 WBC Lymph % (Auto) Absolute Neuts (auto) Seg Neutrophils % Sodium Urine Protein 100 H Urine Ketones TRACE H Urine Blood LARGE H Urine Nitrite POSITIVE H Urine Urobilinogen 2.0 H Ur Leukocyte Esterase MODERATE H - Consults Dr. Wisdom Reason for consultation: 11/06/19 19:10 To discuss lab results and CAT scan results. Spoke with Dr. Wisdom urology from [facility]. Recommends cath urine. States if cath urine is clean she can be discharged home with pain medication and outpatient follow-up. If Urine continues to show infection will need to be transferred to [facility] to be admitted for a kidney stent. 11/07/19 08:42 (MARGARITO ADAMS) Dr. Lynn Reason for consultation: 11/06/19 20:[address] Lynn, hospitalist at [facility] need for admission, with Dr. Wisdom, urologist to consult for stent basement. Accepts transfer, transfer is pending. Will call back with bed assignment. 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
[2019-11-06 19:46] LABS: APPEARANCE,URINE CLOUDY; BILIRUBIN,URINE NEGATIVE (NEGATIVE); COLOR,URINE RED; GLUCOSE, URINE NEGATIVE (NEGATIVE); KETONES,URINE TRACE mg/dL (NEGATIVE); LEUKOCYTE ESTERASE,URINE MODERATE (NEGATIVE); NITRITE,URINE POSITIVE (NEGATIVE); PROTEIN,URINE 100 mg/dL (NEGATIVE); URINE SPECIFIC GRAVITY 1.013
[2019-11-06] MEDS ORDERED: NORMAL SALINE 1000 ML 1,000 ML IV ONE (22:14)
[2019-11-06 22:37] VITALS: BP 102/54
== END 2019-11-06 23:08 | disposition short-term general hospital (02) ==
LOC: ER 16:23
DX: N20.0 Calculus of kidney (principal); N13.4 Hydroureter; N39.0 Urinary tract infection, site not specified; R10.9 Unspecified abdominal pain; R31.9 Hematuria, unspecified; Q62.11 Congenital occlusion of ureteropelvic junction; F17.200 Nicotine dependence, unspecified, uncomplicated; Z87.442 Personal history of urinary calculi
CPT/HCPCS: 96376; 99285; 96361; 96375; 96365; 36415; 83690; 85025; 81025; 80053; 81001; 74176; J1885; J2765; J2270; J2405; J7030; J7120; J0696